=== PATIENT | female | born 1935 | race Two or more races ===

== ENCOUNTER 2022-03-19 11:24 | Inpatient (IN) | payer MEDICARE, OTHER ==
[~2022-03-19] VITALS: Ht 154.9 cm; Wt 60.3 kg
--- NOTE | 2022-03-19 11:35 | NUR ---
To er bed 2, [id number], from home, c/o lower back and iguinal pain s/p tripped and fall 3 days ago, aaox1, breathing even and non labored, connected to monitor, awaiting md orders
--- NOTE | 2022-03-19 11:46 | NUR ---
MAY CALL ELLIOT AT [phone] FOR MORE INFORMATION ABOUT THE PATIENT
--- NOTE | 2022-03-19 11:58 | NUR ---
urine collected and sent to the lab
--- NOTE | 2022-03-19 13:07 | NUR ---
Pt placed on bedpan for second time. Standing by for when pt is finished and needs to be removed from bed milian.
[2022-03-19] MEDS ORDERED: ESCI10TA PO (14:15)
[2022-03-19] MEDS ORDERED: ATOR20TA PO (14:15)
[2022-03-19] MEDS ORDERED: SENN-261 PO (14:15)
[2022-03-19] MEDS ORDERED: MEGE40TA5 PO (14:15)
[2022-03-19] MEDS ORDERED: MEMA10TA56 PO (14:15)
[2022-03-19] MEDS ORDERED: DONE10TA44 PO (14:15)
[2022-03-19] MEDS ORDERED: MECL-159 PO (14:15)
[2022-03-19] MEDS ORDERED: AMLO-213 PO (14:15)
[2022-03-19] MEDS ORDERED: CELE100C98 PO (14:15)
[2022-03-19] MEDS ORDERED: IV NS 0.9% 1,000 ML IV PRN (14:30)
[2022-03-19] MEDS ORDERED: Z GUARD REMEDY 4 OZ OINT TP PRN (14:30)
[2022-03-19] MEDS ORDERED: ACETAMINOPHEN 325 MG TABLET PO PRN (14:30)
[2022-03-19] MEDS ORDERED: MAGNESIUM HYDROXIDE 30 ML UDC PO PRN (14:30)
[2022-03-19] MEDS ORDERED: ONDANSETRON HCL/PF 4 MG/2 ML VIAL IVP PRN (14:30)
[2022-03-19] MEDS ORDERED: ZOLPIDEM TARTRATE 5 MG TABLET PO PRN (14:30)
[2022-03-19] MEDS ORDERED: MAG HYDROX/AL HYDROX/SIMETH 30 ML UDC PO PRN (14:30)
[2022-03-19 15:17] LABS: BASOPHILS % (AUTO) 0.6 % (0.0-2.0); EOSINOPHILS % (AUTO) 0.4 % (0.0-6.0); HEMATOCRIT 39 % (33-45); HEMOGLOBIN 12.9 g/dL (11.5-14.8); LYMPHOCYTES % (AUTO) 31.6 % (20.0-44.0); MEAN CORPUSCULAR HGB CONC 34 g/dl (31.0-36.0); MEAN CORPUSCULAR VOLUME 91 fL (82-100); MONOCYTES # (AUTO) 0.7 K/uL (0.1-1.30); MONOCYTES % (AUTO) 10.4 % (2.0-12.0); NEUTROPHILS # (AUTO) 3.6 K/uL (1.8-8.9); PLATELET COUNT (AUTO) 225 K/uL (150-450); RED BLOOD CELL COUNT(AUTO) 4.22 MIL/uL (4.0-5.2); WHITE BLOOD COUNT (AUTO) 6.4 K/uL (4.3-11.0)
[2022-03-19 16:17] LABS: BILIRUBIN,TOTAL 0.9 mg/dL (0.2-1.0); CALCIUM, SERUM 9.3 mg/dL (8.5-10.1); CREATININE 1.1 mg/dL (0.6-1.3); POTASSIUM 3.6 mmol/L (3.5-5.1); TOTAL PROTEIN, SERUM 8.4 g/dL (6.4-8.2)
--- NOTE | 2022-03-19 16:30 | NUR ---
URINE COLLECTED AND SENT TO LAB
[2022-03-19 17:48] LABS: BILIRUBIN,URINE NEGATIVE (NEGATIVE); COLOR,URINE YELLOW (YELLOW); LEUKOCYTE ESTERASE ,URINE NEGATIVE (NEGATIVE); NITRITE, URINE NEGATIVE (NEGATIVE); PROTEIN,URINE NEGATIVE (NEGATIVE); UGLUCOSE NEGATIVE (NEGATIVE)
[2022-03-19 17:55] LABS: BACTERIA,URINE 1+ /HPF (None Seen)
[2022-03-19] MEDS: MEMANTINE HCL 5 MG TABLET PO SCH (18:00)
[2022-03-19] MEDS: MECLIZINE HCL 25 MG TABLET PO SCH (18:00)
[2022-03-19] MEDS ORDERED: MECLIZINE HCL 12.5 MG TABLET ONE (18:10)
[2022-03-19] MEDS ORDERED: MEMANTINE HCL 5 MG TABLET ONE (18:10)
--- NOTE | 2022-03-19 19:03 | NUR ---
ROOM 308-2
--- NOTE | 2022-03-19 19:32 | NUR ---
ATTEMPTED TO GIVE REPORT, WAS TOLD TO CALL AGAIN
--- NOTE | 2022-03-19 19:37 | NUR ---
REPORT GIVEN TO YUKO Sainz RN FOR ZACK
--- NOTE | 2022-03-19 21:00 | NUR ---
MS RN NOTES ORAL MEDS LIPITOR AND SENOKOT GIVEN,TAKEN WELL.NEGATIVE FOR ASPIRATION.
--- NOTE | 2022-03-19 21:24 | NUR ---
PT TAKEN TO 308 VIA ACLS PROTOCOL. VSS.
--- NOTE | 2022-03-19 21:30 | NUR ---
MS FLEXOGRAPHIC PRESS OPERATOR NOTES RECEIVED THIS 86 Y.O. FEMALE FROM ER PER FILEMON,ALERT X2-3 WITH PERIODS OF CONFUSION,DX S/P FALL FROM HOME,SPEAK UKRAINIAN,NO SKIN ISSUES,SALINE LOCK RIGHT AC INTACT AND PATENT.IVF NS AT 75ML/HR RATE REFUSED.GOT SOME DATA THRU ER GRAND SCRIBE,TRIED TO CALL NEXT OF KIN BY PHONE,NO ANSWER,LEAVE VOICEMAIL ON ANSWERING MACHINE.THIS PATIENT WITH KNOWN HISTORY OF HIGH BLOOD PRESSURE,INCREASE LIPIDS,HIP FRACTURE WITH REPLACEMENT FIVE MONTHS AGO,MULTIPLE FALL DUE TO INCREASING BODY WEAKNESS.FALL PRECAUTION INITIATED,BED ON LOWEST POSITION AND LOCKED,BED ALARM TRIGGERED.CALL LIGHT IN REACH.FREQUENT ROUNDS TO ENSURE PATIENT SAFETY.
--- NOTE | 2022-03-19 21:40 | NUR ---
MS RN NOTES APPEARS AGITATED,REFUSED VITAL SIGNS TO BE CHECKED
[2022-03-19] MEDS: SENNOSIDES 8.6 MG TABLET PO SCH (22:17)
[2022-03-19] MEDS: ATORVASTATIN 10 MG TABLET PO SCH (22:17)
--- NOTE | 2022-03-19 23:00 | NUR ---
MS RN NOTES AWAKE,TRYING TO GET OUT OF BED,AMBULATE TO THE TOILET ASSISTED BY LORENZA DUKES.NOTED UNSTEADY GAIT.
--- NOTE | 2022-03-19 23:10 | NUR ---
MS RN NOTES PATIENT PULLED OUT SALINE LOCK ON RIGHT AC,REFUSED TO HAVE ANOTHER SALINE LOCK INSERTION.
--- NOTE | 2022-03-19 23:15 | NUR ---
MS RN NOTES BEDSIDE COMMODE PROVIDED AT BEDSIDE.
[2022-03-20 06:31] LABS: BASOPHILS # (AUTO) 0.1 K/uL (0.0-0.2); BASOPHILS % (AUTO) 1.1 % (0.0-2.0); EOSINOPHILS % (AUTO) 0.9 % (0.0-6.0); HEMATOCRIT 37 % (33-45); HEMOGLOBIN 12.4 g/dL (11.5-14.8); LYMPHOCYTES # (AUTO) 1.9 K/uL (0.8-4.8); LYMPHOCYTES % (AUTO) 28.2 % (20.0-44.0); MEAN CORPUSCULAR HGB CONC 33 g/dl (31.0-36.0); MEAN CORPUSCULAR VOLUME 91 fL (82-100); MONOCYTES # (AUTO) 0.8 K/uL (0.1-1.30); MONOCYTES % (AUTO) 11.7 % (2.0-12.0); NEUTROPHILS # (AUTO) 3.8 K/uL (1.8-8.9); NEUTROPHILS % (AUTO) 58.1 % (43.0-81.0); PLATELET COUNT (AUTO) 235 K/uL (150-450); RED BLOOD CELL COUNT(AUTO) 4.08 MIL/uL (4.0-5.2); WHITE BLOOD COUNT (AUTO) 6.6 K/uL (4.3-11.0)
--- NOTE | 2022-03-20 06:34 | NUR ---
FUEL CELL REPAIRER NOTES CALM AND QUIET THIS MORNING.ABLE TO CALL AND ASK FOR HELP TO GO TO THE TOILET.OFFERED TO HAVE NEW SALINE LOCK TO BE INSERTED BUT REFUSED.MED COMPLIANT BUT NOT THE IV.IN NO ACUTE DISTRESS
--- NOTE | 2022-03-20 07:25 | NUR ---
MS RN OPENING NOTE RECEIVED PT IN BED ASLEEP, EASILY AROUSED. A/O X1-2. REORIENTED PT NEEDED. ON RA, TOLERATING WELL. BREATHING EVEN AND UNLABORED. NOT IN ANY SIGN OF RESPIRATORY DISTRESS. NO IV ACCESS NOTED, PER QUALITY CONTROL LAB TECHNICIAN NURSE PT REFUSED IV REINSERTION. WILL RETRY TO REINSERT. SAFETY MEASURES IN PLACE: BED IN LOWEST AND LOCKED POSITION, BED ALARM ON, SIDE RAILS UPX2, CALL LIGHT WITHIN REACH. WILL CONTINUE TO MONITOR PT.
[2022-03-20 07:26] LABS: CALCIUM, SERUM 9.3 mg/dL (8.5-10.1); MAGNESIUM 2.3 mg/dL (1.8-2.4); PHOSPHORUS 4.2 mg/dL (2.5-4.9); POTASSIUM 3.8 mmol/L (3.5-5.1)
[2022-03-20 08:00] VITALS: BP 134/82
[2022-03-20] MEDS: MEMANTINE HCL 5 MG TABLET PO SCH ×2 (09:50→17:00)
[2022-03-20] MEDS: ESCITALOPRAM OXALATE (10 MG) 10 MG TABLET PO SCH (09:50)
[2022-03-20] MEDS: DONEPEZIL 5 MG TABLET PO SCH (09:51)
[2022-03-20] MEDS: CELECOXIB 100 MG CAPSULE PO SCH (09:51)
[2022-03-20] MEDS: MEGESTROL ACETATE 40 MG TABLET PO SCH (09:51)
[2022-03-20] MEDS: MECLIZINE HCL 25 MG TABLET PO SCH ×4 (09:51→17:00)
[2022-03-20] MEDS: AMLODIPINE BESYLATE 10 MG TABLET PO SCH (09:52)
--- NOTE | 2022-03-20 13:50 | NUR ---
RN NOTE MECLIZINE MEDICATION SCHEDULED AT 1300, PT STRONGLY REFUSED. PT INITIALLY AGREED TO TAKE THE MEDICATION BUT THEN WHEN ABOUT TO GIVE IT, PT STRONGLY REFUSED IT. EXPLAINED RISK AND BENEFITS STILL STRONGLY REFUSED.
--- NOTE | 2022-03-20 14:12 | NUR ---
RN NOTE PT PULLED OUT THE ARLINE MIDLINE. NO ACTIVE BLEEDING NOTED. DRY PRESSURE DRESSING APPLIED AT THE SITE. MD AWARE.
[2022-03-20 16:00] VITALS: BP 115/59
[2022-03-20] MEDS ORDERED: ONDANSETRON 4 MG TAB.RAPDIS PO PRN (16:00)
--- NOTE | 2022-03-20 18:45 | NUR ---
MS RN CLOSING NOTE PT IN BED AWAKE. A/O X 1-2 WITH EPISODES OF CONFUSION AND ABLE TO MAKE NEEDS KNOWN. REORIENTED PT NEEDED. ON RA, TOLERATING WELL. BREATHING EVEN AND UNLABORED. NOT IN ANY SIGN OF RESPIRATORY DISTRESS. IV ACCESS DC'D BY HIGH MANMALOU DUE PT PULLING IV MULTIPLE TIMES. ALL NEEDS ATTENDED. SAFETY MEASURES IN PLACE: BED IN LOWEST AND LOCKED POSITION, SIDE RAILS UPX2, CALL LIGHT WITHIN REACH. WILL ENDORSED TO STORAGE BATTERY CHARGER NURSE FOR ZACK.
[2022-03-20 20:00] VITALS: BP 126/70
[2022-03-20] MEDS: ATORVASTATIN 10 MG TABLET PO SCH (21:45)
[2022-03-20] MEDS: SENNOSIDES 8.6 MG TABLET PO SCH (21:45)
--- NOTE | 2022-03-21 03:16 | NUR ---
ms rn notes pt refusing to have skin assessment done or iv reinsertion. pt gets agitated when approached pt also refused due evening meds.
--- NOTE | 2022-03-21 05:50 | NUR ---
ms rn notes pt noted grunting and holding her back when assisting her to bsc. pt offered pain medication pt requested tylenol. tylenol provided and tolerated well. will continue to monitor.
--- NOTE | 2022-03-21 06:31 | NUR ---
MS RN CLOSING NOTE PT IN BED ASLEEP. A/O X 1-2 WITH EPISODES OF CONFUSION AND ABLE TO MAKE NEEDS KNOWN. REORIENTED PT NEEDED. ON RA, TOLERATING WELL. BREATHING EVEN AND UNLABORED. NOT IN ANY SIGN OF RESPIRATORY DISTRESS. IV ACCESS DC'D BY SOLE ROUNDING MACHINE OPERATORMALOU DUE PT PULLING IV MULTIPLE TIMES. ALL NEEDS ATTENDED. SAFETY MEASURES IN PLACE: BED IN LOWEST AND LOCKED POSITION, SIDE RAILS UPX2, CALL LIGHT WITHIN REACH. WILL ENDORSED TO DAY SHIFT.
--- NOTE | 2022-03-21 07:30 | NUR ---
MS RN OPENING NOTES RECEIVED PT IN BED ASLEEP, EASILY AROUSED. A/O X1-2. PATIENT IS IN RA, AND ABLE TO TOLERATE IT WELL. BREATHING EVEN, UNLABORED, AND NO S/S OF RESPIRATORY DISTRESS. NO IV ACCESS NOTED, PER EXPLOSIVES OPERATOR NURSE PT REFUSED IV REINSERTION. WILL RETRY TO REINSERT. SAFETY MEASURES IN PLACE: BED IN LOWEST AND LOCKED POSITION, BED ALARM ON, SIDE RAILS UPX2, CALL LIGHT WITHIN REACH. WILL CONTINUE TO MONITOR FOR ZACK.
[2022-03-21 08:31] VITALS: BP 130/73
[2022-03-21] MEDS: MECLIZINE HCL 25 MG TABLET PO SCH ×3 (09:12→17:26)
[2022-03-21] MEDS: MEGESTROL ACETATE 40 MG TABLET PO SCH (09:12)
[2022-03-21] MEDS: DONEPEZIL 5 MG TABLET PO SCH (09:12)
[2022-03-21] MEDS: CELECOXIB 100 MG CAPSULE PO SCH (09:12)
[2022-03-21] MEDS: ESCITALOPRAM OXALATE (10 MG) 10 MG TABLET PO SCH (09:12)
[2022-03-21] MEDS: AMLODIPINE BESYLATE 10 MG TABLET PO SCH (09:13)
[2022-03-21] MEDS: MEMANTINE HCL 5 MG TABLET PO SCH ×2 (09:13→17:26)
[2022-03-21 16:32] VITALS: BP 103/54
--- NOTE | 2022-03-21 19:36 | NUR ---
MS RN CLOSING NOTES PT IS LYING DOWN COMFORTABLY IN BED, EASILY AROUSED. A/O X1-2. PATIENT IS IN RA, AND ABLE TO TOLERATE IT WELL. BREATHING EVEN, UNLABORED, AND NO S/S OF RESPIRATORY DISTRESS. NO IV ACCESS NOTED, PER NURSING HOME ASSISTANT NURSE PT REFUSED IV REINSERTION. WILL RETRY TO REINSERT. SAFETY MEASURES IN PLACE: BED IN LOWEST AND LOCKED POSITION, BED ALARM ON, SIDE RAILS UPX2, CALL LIGHT WITHIN REACH. WILL ENDORSE TO INCOMING SHIFT FOR ZACK.
[2022-03-21 20:00] VITALS: BP 112/64
--- NOTE | 2022-03-21 20:08 | NUR ---
MS RN OPENING NOTES PT IS LYING DOWN COMFORTABLY IN BED, EASILY AROUSED. A/O X1-2. PATIENT IS IN RA, AND ABLE TO TOLERATE IT WELL. BREATHING EVEN, UNLABORED, AND NO S/S OF RESPIRATORY DISTRESS. NO IV ACCESS NOTED PT REFUSING. SAFETY MEASURES IN PLACE: BED IN LOWEST AND LOCKED POSITION, BED ALARM ON, SIDE RAILS UPX2, CALL LIGHT WITHIN REACH. WILL CONTINUE TO MONITOR.
[2022-03-21] MEDS: SENNOSIDES 8.6 MG TABLET PO SCH (21:52)
[2022-03-21] MEDS: ATORVASTATIN 10 MG TABLET PO SCH (21:53)
--- NOTE | 2022-03-22 06:39 | NUR ---
MS RN CLOSING NOTES PT IS LYING DOWN COMFORTABLY IN BED, EASILY AROUSED. A/O X1-2. PATIENT IS IN RA, AND ABLE TO TOLERATE IT WELL. BREATHING EVEN, UNLABORED, AND NO S/S OF RESPIRATORY DISTRESS. NO IV ACCESS NOTED PT REFUSING. SAFETY MEASURES IN PLACE: BED IN LOWEST AND LOCKED POSITION, BED ALARM ON, SIDE RAILS UPX2, CALL LIGHT WITHIN REACH. ALL DUE MEDS GIVEN AND TOLERATED WELL. ALL NEEDS MET. WILL CONTINUE TO MONITOR.
--- NOTE | 2022-03-22 07:45 | NUR ---
MS RN OPENING NOTES RECEIVED PT IN BED ASLEEP, EASILY AROUSED. A/O X1-2. PATIENT IS IN RA, AND ABLE TO TOLERATE IT WELL. BREATHING EVEN, UNLABORED, AND NO S/S OF RESPIRATORY DISTRESS. NO IV ACCESS NOTED, PER SENIOR LOGISTICS MANAGER NURSE PT REFUSED IV REINSERTION. WILL RETRY TO REINSERT. SAFETY MEASURES IN PLACE: BED IN LOWEST AND LOCKED POSITION, BED ALARM ON, SIDE RAILS UPX2, CALL LIGHT WITHIN REACH. WILL CONTINUE TO MONITOR FOR ZACK.
[2022-03-22 09:19] VITALS: BP 118/82
[2022-03-22] MEDS: CELECOXIB 100 MG CAPSULE PO SCH (09:19)
[2022-03-22] MEDS: AMLODIPINE BESYLATE 10 MG TABLET PO SCH (09:19)
[2022-03-22] MEDS: ESCITALOPRAM OXALATE (10 MG) 10 MG TABLET PO SCH (09:19)
[2022-03-22] MEDS: DONEPEZIL 5 MG TABLET PO SCH (09:19)
[2022-03-22] MEDS: MEGESTROL ACETATE 40 MG TABLET PO SCH (09:19)
[2022-03-22] MEDS: MECLIZINE HCL 25 MG TABLET PO SCH ×2 (09:19→13:25)
[2022-03-22] MEDS: MEMANTINE HCL 5 MG TABLET PO SCH (09:19)
--- NOTE | 2022-03-22 11:00 | NUR ---
MS ENGINE REPAIRER NOTES PT IS AWAKE, ALERT, AND ORIENTED 1-2. PATIENT IS IN RA AND ABLE TO TOLERATE IT WELL WITHOUT ANY SIGNS OF DISCOMFORT AND SOB. BREATHING EVEN AND UNLABORED. IV SITE IN NO IV ACCESS. DISCHARGE REPORT IS GIVEN TO LORENZA ROUSSEAU IN [facility]. BELONGING LISTS AND D/C PACKET WERE COMPLETED. PATIENT IS STABLE AND PICKED UP BY 2 TAX MAP TECHNICIAN. REPORT GIVEN TO ANGELIQUE GUTHRIE.
== END 2022-03-22 14:00 | DRG 91 ==
LOC: ER 11:28 → TRANSITION 17:13 → MED 20:30
PROVIDERS: ADMIT Nurse Practitioner Acute Care; ATTEND Internal Medicine
PROC: 05HB33Z Insertion of Infusion Device into Right Basilic Vein, Percutaneous Approach (ICD-10-PCS; principal; 2022-03-20)
DX: R26.89 Other abnormalities of gait and mobility (principal); G93.41 Metabolic encephalopathy; M84.48XA Pathological fracture, other site, initial encounter for fracture; W19.XXXA Unspecified fall, initial encounter; F03.90 Unspecified dementia, unspecified severity, without behavioral disturbance, psychotic disturbance, mood disturbance, and anxiety; R29.6 Repeated falls; Z20.822 Contact with and (suspected) exposure to COVID-19; I10 Essential (primary) hypertension; E78.5 Hyperlipidemia, unspecified; F32.A Depression, unspecified; Z96.649 Presence of unspecified artificial hip joint; Z79.899 Other long term (current) drug therapy; R79.89 Other specified abnormal findings of blood chemistry; Z91.81 History of falling; Z87.81 Personal history of (healed) traumatic fracture; Y92.9 Unspecified place or not applicable
CPT/HCPCS: 36410; 36415; 70450-TC; 72125-TC; 72131-TC; 80048-TC; 80053-TC; 81001; 83735-TC; 84100-TC; 85025-TC; 87086-TC; 97116-TC; 97530-TC; C9803; G0378; J7030; J8597